=== PATIENT | male | born 1960 | race American Indian/Alaskan Native ===

== ENCOUNTER 2017-12-19 09:14 | Day surgery (SDC) | payer OTHER ==
[2017-12-19] MEDS ORDERED: ATROPINE 0.1% (CARDIAC) ONE (11:04)
[2017-12-19] MEDS ORDERED: LOPRESSOR IV ONE ×3 (11:05→11:57)
[2017-12-19] MEDS ORDERED: NITROSTAT SL ONE ×2 (11:05→12:08)
[2017-12-19] MEDS ORDERED: ATROPINE IV ONE (11:07)
[2017-12-19 11:13] LABS: Blood Urea Nitrogen 15 mg/dL (9-20)
[2017-12-19] MEDS ORDERED: ATROPINE 0.1% (CARDIAC) IV ONE (12:00)
[2017-12-19 12:06] VITALS: BP 130/93
== END 2017-12-19 12:25 | disposition home or self-care (01) ==
LOC: CATHLABREC 09:14 → EDSTATUS 09:45 → CATHLABREC 12:25
PROVIDERS: ATTEND Internal Medicine Cardiovascular Disease
DX: I25.10 Atherosclerotic heart disease of native coronary artery without angina pectoris (principal); Z53.8 Procedure and treatment not carried out for other reasons
CPT/HCPCS: 36415; 82565; 84520; J0461

== ENCOUNTER 2018-01-01 07:40 | Day surgery (SDC) | payer OTHER ==
[2018-01-01 08:45] LABS: Basophils % (Auto) 0.6 % (0.0-1.8); Eosinophils # (Auto) 0.1 K/mm3 (0.0-0.4); Eosinophils % (Auto) 1.2 % (0.0-4.3); Hematocrit 42.1 % (35.5-45.6); Hemoglobin 14.1 gm/dl (11.8-15.2); Lymphocytes # (Auto) 1.4 K/mm3 (1.2-5.4); Lymphocytes % (Auto) 24.6 % (13.4-35.0); Mean Corpuscular HGB Conc 33 % (32-34); Mean Corpuscular Hemoglobin 29 pg (28-32); Mean Corpuscular Volume 87 fl (84-94); Monocytes # (Auto) 0.6 K/mm3 (0.0-0.8); Monocytes % (Auto) 10.9 % (0.0-7.3); Platelet Count 202 K/mm3 (140-440); Red Blood Count 4.81 M/mm3 (3.65-5.03); Red Cell Distribution Width 14.6 % (13.2-15.2)
[2018-01-01 08:56] LABS: INR 0.95 (0.87-1.13)
[2018-01-01] MEDS ORDERED: NACL 0.9% 500 ML 500 ML IV SCH (09:00)
[2018-01-01 09:29] LABS: BUN/Creatinine Ratio 12; Blood Urea Nitrogen 12 mg/dL (9-20); Calcium 8.5 mg/dL (8.4-10.2); Hemolysis Index 3
[2018-01-01] MEDS ORDERED: HEPARIN/NS 5000 UNIT/500ML(CATH LAB) 1,000 ML IR ONE (12:53)
[2018-01-01] MEDS ORDERED: CALAN ONE (12:53)
[2018-01-01] MEDS ORDERED: HEPARIN 10,000 UNITS/10 ML ONE (12:53)
[2018-01-01] MEDS ORDERED: XYLOCAINE 1% 20 mL ONE (12:54)
[2018-01-01] MEDS ORDERED: VERSED ONE (12:54)
[2018-01-01] MEDS ORDERED: NITROGLYCERIN SYRINGE 3 ML ONE (12:54)
[2018-01-01] MEDS ORDERED: SUBLIMAZE ONE (12:55)
[2018-01-01] MEDS ORDERED: ULTRAM PO PRN (14:29)
[2018-01-01] MEDS ORDERED: CATAPRES PO PRN (14:30)
[2018-01-01] MEDS ORDERED: COZAAR PO ONE (14:34)
--- NOTE | 2018-01-01 14:34 | Discharge Summary ---
Short Stay Discharge Plan Activity: advance as tolerated Weight Bearing Status: Full Weight Bearing Diet: low fat, low cholesterol, low salt Wound: keep clean and dry Special Instructions: no heavy lifting (3 days) Follow up with: ERICKA ALMONTE MD [Other] - 7 Days SP CHILEL MD [Staff Physician] - 7 Days
--- NOTE | 2018-01-01 14:42 | Cardiac Catherization Report ---
CARDIAC CATHETERIZATION REASON FOR PROCEDURE: Chest pain. DESCRIPTION OF PROCEDURE: The patient was prepped and draped in a sterile fashion after informed consent. The right radial cath site was prepped and draped after a negative Rudy's test. The right radial artery was entered using Seldinger technique followed by placement of a 6-[place] hydrophilic sheath. Routine radial cocktail was administered via the sheath. A #3.5 left Mayda was used for left coronary angiography. A #4 right Mayda was used for right coronary angiography. The right Mayda was used for left ventricle angiography. The catheters were removed, sheath removed, and hemostasis achieved using manual compression. The patient was returned to the postprocedure unit in stable condition. There were no complications. FINDINGS: HEMODYNAMICS: Left ventricle end diastolic pressure was 18, following coronary angiography. Ascending aortic pressure was 139/95. There was no significant pressure gradient or pullback across the aortic valve. CORONARY ANGIOGRAPHY: Left main coronary artery was free of significant disease. The left anterior descending artery contained mild narrowing in its mid segment, with a 20-30% stenosis. Otherwise, the LAD and diagonal branches were essentially angiographically normal. The circumflex artery and its obtuse marginal branches were free of significant disease. The right coronary artery was dominant. This vessel contained mild luminal irregularities in its mid segment. Left ventricular chamber size and systolic function were within normal limits. Left ventricular ejection fraction 60-65%. CONCLUSION: 1. Mild nonobstructive disease of the mid LAD as noted above. 2. No significant obstructive coronary artery disease. 3. Normal left ventricular systolic function, ejection fraction 60-65%. RECOMMENDATION: Risk factor modification and medical therapy. JOB# [id number] CA/NTS
[2018-01-01] MEDS ORDERED: NACL 0.9% 1000 ML 1,000 ML IV SCH (15:00)
[2018-01-01 17:28] VITALS: BP 143/105
== END 2018-01-01 17:57 | disposition home or self-care (01) ==
LOC: CATHLABREC 07:40
PROVIDERS: ATTEND Internal Medicine Cardiovascular Disease
DX: I25.10 Atherosclerotic heart disease of native coronary artery without angina pectoris (principal); I48.91 Unspecified atrial fibrillation; I10 Essential (primary) hypertension; E78.5 Hyperlipidemia, unspecified; E03.9 Hypothyroidism, unspecified; F32.9 Major depressive disorder, single episode, unspecified; Z79.899 Other long term (current) drug therapy
CPT/HCPCS: 36415; 80048; 85025; 85610; 85730; 93005; 93010; 93458; 99156; 99157; C1894; J1644; J2250; J3010; J7040; Q9967